=== PATIENT | male | born 1985 | race Caucasian/White ===

== ENCOUNTER 2025-08-13 13:25 | Emergency (ER) | payer BC, SELFPAY ==
[2025-08-13] VITALS (7 sets, daily range): BP systolic 150–170; BP diastolic 78–109; PULSE 59–66; RESP 18; TEMP 36.6–36.8; O2SAT 93–99; BMI 48.9
--- NOTE | 2025-08-13 14:12 | CT_ITS ---
PROCEDURE: ABDOMEN/PELVIS WITHOUT CONT 08/13/2025 REASON FOR EXAM: PAIN Left flank pain and emesis. TECHNIQUE: Procedure Code: CTABDPEL Modality: CT Procedure: ABDOMEN/PELVIS WITHOUT CONT Noncontrast technique limits evaluation of the abdominal and pelvic viscera. Coronal and Sagittal reconstruction series were provided. One or more dose reduction techniques were used (e.g., Automated exposure control, adjustment of the mA and/or kV according to patient size, use of iterative reconstruction technique). RADIATION DOSE SUMMARY: CTDlvol: 33.8 mGy DLP: 1993.29 mGycm COMPARISON: None FINDINGS: Lung bases: Increased linear markings in the anterior medial aspect of the right middle lobe as well as the anterior aspect of the left lower lobe suggestive of scarring. Liver: Normal size. No obvious mass. Gallbladder: Unremarkable. Spleen: Normal size. Pancreas: Normal size. No surrounding inflammation. Adrenals: Unremarkable. Kidneys: Unremarkable. No evidence of hydronephrosis. I suspect a tiny calculus at the left ureterovesical junction. Bladder: Unremarkable Unremarkable Bowel: Unremarkable Appendix: Unremarkable Lymph nodes: Unremarkable. Vasculature: The abdominal aorta and IVC contours are normal. Noncontrast technique limits evaluation. Peritoneum / Retroperitoneum: Small umbilical hernia containing fat. Bones: Minimal disc space narrowing at the L5-S1 level. Central disc bulge. CT/Abdomen/Pelvis without Cont IMPRESSION: Findings suggestive of a tiny calculus at the left ureterovesical junction with out significant left-sided hydronephrosis or hydroureter. Reading Location: [facility]
[2025-08-13] MEDS: 0.9% Normal Saline (1000mL) 1,000 ML 999 ML IV (14:19)
[2025-08-13 14:36] LABS: Hematocrit 44.6 % (40-54); Hemoglobin 15.4 g/dL (13.0-16.5); Immature Granulocytes Count 0.060 X10^3/uL (0.0-0.0); Mean Corp Hgb Conc 34.5 g/dL (32-36); Mean Corpuscular Volume 88.3 fL (80-94); Mean Platelet Vol. 10.2 fl (6.2-12.0); NRBC Flagged by Analyzer 0 % (0-5); Platelet Count 269 K/mm3 (150-450); RBC Distribution Width CV 13.1 % (11.6-14.6); RBC Distribution Width SD 42.3 fl (35.1-43.9); Red Blood Count 5.05 M/mm3 (4.6-6.2); White Blood Count 13.4 K/mm3 (4.4-11.0)
[2025-08-13 14:57] LABS: Anion Gap 14 (5-15); BUN 16 mg/dL (4-19); BUN/Creat Ratio 13.8 RATIO (10-20); Calcium,Total 9.0 mg/dL (7.6-11.0); Carbon Dioxide 20.8 mmol/L (21.0-32.0); Chloride 105 mmol/L (98-108); Estimated Creatinine Clearance 125.51 ml/min (50-250); Glucose 119 mg/dL (70-99); Potassium 3.9 mmol/L (3.3-5.1)
[2025-08-13] MEDS: Ketorolac 30 MG/ML Syringe IV (15:12)
[2025-08-13] MEDS: 0.9% Normal Saline (1000mL) 1,000 ML 1000 ML IV (15:54)
--- NOTE | 2025-08-13 16:18 | EDS_ITS ---
HPI History of Present Illness Chief Complaint: Flank Pain Informant: patient Onset/Context/Timing Onset: Today Context: Sudden Onset Timing: Continuous Quality: Sharp Location: Left low back and left lower abdomen Worsened by: Nothing Relieved by: Nothing Narrative Narrative: Patient presents with back and lower abdominal pain that began today. Patient states it began rather suddenly. Patient states it started in his back and then has progressed to the left lower abdomen. Patient states nothing makes it better and nothing makes it worse. Patient admits to some nausea and vomiting. Patient also admits to some diarrhea and urinary urgency. Patient admits to some subjective fevers but denies any chills. Patient denies any dysuria or hematuria. PFSH PFSH Medical History no medical history Home Medications Medication Instructions Recorded Last Taken Type hydrocodone-acetaminophen 5-325mg 1 tab PO Q6H PRN PRN Pain 3 days 08/13/25 Unknown Rx 5mg-325mg #10 TABLETS ondansetron 4 mg disintegrating 4 mg PO Q8H PRN PRN Na usea #10 tabs 08/13/25 Unknown Rx tablet Allergy/AdvReac Type Severity Reaction Status Date / Time Penicillins Allergy Unknown unknown Verified 08/13/25 13:27 Surgical History (Updated 08/13/25 @ 16:[address] Diomedes Reed DO) Hx of inguinal herniorrhaphy S/P ORIF (open reduction internal fixation) fracture Surgical History no surgical history Social History Smoking Status: Never smoker ROS ROS ED Constitutional Constitutional ED: Reports fever(s) and subjective; Denies chills Eyes Eyes: Denies blurry vision or change in vision ENT ENT ED: Denies rhinorrhea or sore throat Cardiovascular Cardiovascular: Denies chest pain or palpitations Respiratory/Chest Respiratory/Chest: Denies cough or dyspnea Gastrointestinal Gastrointestinal: Reports abdominal pain, diarrhea, nausea and vomiting Genitourinary Genitourinary ED: Denies dysuria or hematuria Musculoskeletal Musculoskeletal: Denies back pain or neck pain Integumentary Denies abscess or rash Neurologic Neurologic: Denies headache(s) or weakness Allergic/Immunologic Allergic/Immunologic ED: Denies mouth swelling or urticaria EXAM Physical Exam Const Vital Signs: 08/13/25 13:25 08/13/25 14:25 08/13/25 15:00 Temperature 98.2 F Temperature Source Oral Pulse Rate 66 63 Respiratory Rate 18 18 Blood Pressure 170/102 H 152/90 H 156/103 H Blood Pressure Mean 124 110 118 Pulse Ox 99 95 97 Oxygen Delivery Method Room Air 08/13/25 16:00 08/13/25 16:30 08/13/25 17:00 Temperature Temperature Source Pulse Rate 59 L Respiratory Rate 18 Blood Pressure 168/109 H 150/83 H Blood Pressure Mean 125 105 Pulse Ox 93 98 Oxygen Delivery Method Room Air Positive well nourished and well developed Constitutional Narrative: BMI is 49.0. General Appearance ED: well developed and NAD HEENT Reports moist mucous membranes Neck supple and no JVD Resp normal respiratory effort and clear to auscultation bilaterally Cardio regular rate and regular rhythm GI non-distended Palpation: soft and tender LLQ; Negative for guarding or rebound tenderness present Back/Spine no CVA tenderness Extremity normal to inspection General Extremety ED: Negative for edema or tenderness General Extremity: Negative for edema Neuro oriented x3, CN's II-XII intact bilaterally and no sensory deficits noted Sensorium / Orientation: alert Motor Exam: strength 5/5 throughout Psych mental status grossly normal MDM MDM MDM Narrative Medical decision making narrative: Differential diagnosis includes ureteral calculus, diverticulitis, pyelonephritis, urinary tract infection, colitis, dehydration, and viral illness. CBC will be obtained to assess for leukocytosis and anemia. Basic metabolic profile will be obtained to assess for electrolyte abnormality renal function. Urinalysis will be obtained to assess for urinary tract infection and hematuria. CT scan of the abdomen and pelvis will be obtained to assess for ureteral calculus, pyelonephritis, diverticulitis, and colitis. Lab Data Attestation: I reviewed the patient's lab results. Lab results narrative: CBC was reviewed. There is a mild leukocytosis of 13.4. The remainder is within normal limits. Basic metabolic profile was reviewed and was essentially within normal limits. Urinalysis was reviewed. There is no evidence of urinary tract infection. Labs: Laboratory Results - last 24 hr 08/13/25 08/13/25 14:20 16:30 WBC 13.4 H RBC 5.05 Hgb 15.4 Hct 44.6 MCV 88.3 MCH 30.5 MCHC 34.5 RDW Std Deviation 42.3 RDW Coeff of Cyrus 13.1 Plt Count 269 MPV 10.2 Immature Gran % (Auto) 0.400 Neut % (Auto) 82.9 H Lymph % (Auto) 11.2 L Clark % (Auto) 4.9 Eos % (Auto) 0.2 Baso % (Auto) 0.4 Absolute Neuts (auto) 11.1 H Absolute Lymphs (auto) 1.51 Nucleated RBC % 0 Sodium 140 Potassium 3.9 Chloride 105 Carbon Dioxide 20.8 L Anion Gap 14 BUN 16 Creatinine 1.17 Estim Creat Clear Calc 125.51 Est GFR (MDRD) Non-Af 81 BUN/Creatinine Ratio 13.8 Glucose 119 H Calcium 9.0 Urine Color Yellow Urine Clarity Clear Urine pH 6.0 Ur Specific Ruffin 1.020 Urine Protein 15 H Urine Glucose (UA) Normal Urine Ketones 15 H Urine Occult Blood 25 H Urine Nitrite Negative Urine Bilirubin Negative Urine Urobilinogen 1 H Ur Leukocyte Esterase Negative Radiography Diagnostic Testing: Clinical Impression(s) from Imaging Studies Abdomen/Pelvis CT 08/13/25 14:12 IMPRESSION: Findings suggestive of a tiny calculus at the left ureterovesical junction without significant left-sided hydronephrosis or hydroureter. Reading Location: [facility] CT scan of the abdomen and pelvis was obtained. There is a small calculus at the left distal ureter near the ureterovesicular junction. There is no significant hydronephrosis or hydroureter noted. This was interpreted by the radiologist and was also independently reviewed by myself. Treatment and Re-Evaluation :: Patient was given IV fluids, morphine, and Zofran. Patient had minimal relief with this. Patient was given a dose of Toradol and Zofran. Patient was given a repeat dose of morphine and Reglan. Patient was feeling somewhat better after this. Patient was given a dose of [place] here. Patient was given prescriptions for [place] and Zofran. Patient was instructed to follow-up with his primary care physician in 3 to 5 days. Patient was also given a referral for urology. Patient was instructed to return if worse in any way. Patient understood and was agreeable with the plan. All questions were answered. Discharge Plan Triage Chief Complaint: Flank Pain ED Provider: Diomedes eRed Dx/Rx/DC Orders Clinical Impression: Calculus of distal left ureter, Elevated blood pressure reading Instructions: ED Kidney Stone with Pain Prescriptions: New hydrocodone-acetaminophen 5-325 mg tablet 1 tab PO Q6H PRN PRN (Reason: Pain) 3 Days Qty: 10 0RF ondansetron 4 mg tablet,disintegrating 4 mg PO Q8H PRN PRN (Reason: Nausea) Qty: 10 0RF Primary Care Provider: Care Physician,No Primary Referrals: Omer Wilhelm MD [Med Staff - Active Staff, Urology] - 3-5 Days Care Physician,No Primary [Primary Care Provider, Medical] Print Language: Guamanian Disposition Disposition: Home, Self Care D/C Safety Score for UGIB Assessment Maynard-Blatchford Bleeding Score (GBS): Stratifies upper GI bleeding patients who are "low-risk" and candidates for outpatient management. Sex: Male Hemoglobin, BUN, Recent Vital Signs: Hgb 15.4 g/dL (13.0-16.5) 08/13/25 14:20 BUN 16 mg/dL (4-19) 08/13/25 14:20 Pulse Rate 59 Blood Pressure 150/83 Total Risk Score: 2 Score Interpretation: Score of 0: A GBS of 0 is a “Low Risk” GI bleed, and is highly sensitive (99.6% in a 2007 retrospective study) for predicting which patients did not require any “medical intervention”: blood transfusion, endoscopy, or surgery. This was confirmed in a 2009 [facility] study where patients with a score of 0 were actually discharged and had no GI bleeding mortality at 6 month followup Score above 0: A GBS greater than zero suggests a “High Risk” GI bleed that is likely to require “medical intervention”: transfusion, endoscopy, or surgery. A higher GBS also correlated with a higher likelihood of needing intervention Scores >/= 6 are associated with >50% risk of needing intervention D/C Safety Score for LGIB Assessment Assessment Tool: Readmission and adverse event risk in patients with acute lower GI bleeding. Age, in years: 40-69 Sex: Male Hemoglobin and Recent Vital Signs: Hgb 15.4 g/dL (13.0-16.5) 08/13/25 14:20 Pulse Rate 59 08/13/25 17:00 Blood Pressure 150/83 08/13/25 16:30 Probability of safe discharge: 99% Total Risk Score: 2 Score Interpretation: Probability Percentage of safe discharge (absence of rebleeding, blood transfusion, therapeutic intervention, 28 day readmission, or ) Score of 8 or below: Consider discharge, with appropriate precautions. Score of 9 or above: Discharge NOT recommended. Consider admission with further workup and resuscitation as necessary.
[2025-08-13 16:44] LABS: Color, Urine Yellow (Yellow); Glucose, Dipstick Normal (Normal); Ketone-Dipstick 15 mg/dl (Negative); Leukocyte Esterase-Dipstick Negative /ul (Negative); Nitrite-Dipstick Negative (Negative); Occult Blood-Urine 25 /ul (Negative); Protein-Dipstick 15 mg/dl (Negative); Specific Gravity, Urine 1.020 (1.002-1.030); Urine Bilirubin Dipstick Negative (Negative)
[2025-08-13] MEDS: HYDROcodone Bitartrate/Apap 5/325 Tablet PO (18:18)
[2025-08-13 19:15] LABS: Squamous Epithelial Cells - UA 0-5 SEEN /hpf (0-5)
[2025-08-13 19:16] LABS: Red Blood Cells-Urine 5-10 SEEN /hpf (0-5)
[2025-08-13 19:17] LABS: Mucous, Urine 2+ /hpf (<or=2+)
== END 2025-08-13 18:25 | disposition home or self-care (01) ==
PROVIDERS: Emergency Provider Emergency Medicine; Visit Provider Emergency Medicine
DX: N20.1 Calculus of ureter (principal); R03.0 Elevated blood-pressure reading, without diagnosis of hypertension
CPT/HCPCS: 74176; 80048; 81001; 85025; 96361; 96374; 96375; 96376; 99283; A4216; J2405